=== PATIENT | male | born 1965 | race Caucasian/White ===

== ENCOUNTER → 2016-03-24 | Outpatient (CLI) | payer OTHER | END | disposition home or self-care (01) | LOC: PCVCIMAG 10:09 | PROVIDERS: ATTEND Internal Medicine | DX: Q23.1 Congenital insufficiency of aortic valve (principal); R06.02 Shortness of breath; I42.9 Cardiomyopathy, unspecified; I10 Essential (primary) hypertension; E78.5 Hyperlipidemia, unspecified; Z95.0 Presence of cardiac pacemaker | CPT/HCPCS: 80061; 93005; 93306; G0463 ==

== ENCOUNTER → 2016-04-02 | Outpatient (CLI) | payer OTHER ==
[~2016-04-02] MED LIST: BENZOCAINE ONE 20% MUCOSAL SPRAY.; FENTANYL PF 100 MCG/2 ML VIAL. ONE; IOHEXOL 350 MG/ML 100ML VIAL. ONE; IOHEXOL 350 MG/ML 50 ML VIAL. ONE; IV NORMAL SALINE 1000ML BAG 1,000 ML ONE; LIDOCAINE 1% Multi-Dose 20 ML VIAL. ONE; MIDAZOLAM HCL 2 MG/2 ML VIAL. ONE
== END | disposition home or self-care (01) ==
LOC: PCVCINTER 08:32
PROVIDERS: ATTEND Internal Medicine
DX: I35.2 Nonrheumatic aortic (valve) stenosis with insufficiency (principal); I10 Essential (primary) hypertension; I51.7 Cardiomegaly; I42.9 Cardiomyopathy, unspecified; E78.5 Hyperlipidemia, unspecified; R06.02 Shortness of breath; R06.00 Dyspnea, unspecified; Z95.0 Presence of cardiac pacemaker
CPT/HCPCS: 93312; 93325; 93458; 93567; C1751; C1760; C1769; C1894; J2250; J3010; J7030; Q9967

== ENCOUNTER → 2016-09-08 | Outpatient (CLI) | payer OTHER ==
--- NOTE | 2016-09-08 16:42 | PCVCIMAG ---
APPROVED REPORT Study performed: 09/08/2016 13:17:04 EXAM: Comprehensive 2D, Doppler, and color-flow Echocardiogram Status: routine Other Information Study Quality: Adequate Indications AVR, Hypertension, Cardiomyopathy 2D Dimensions IVSd: 13.32 (7-11mm)LVOT Diam: 23.32 (18-24mm) LVDd: 55.15 mm PWd: 11.96 (7-11mm)Ascending Ao: 36.19 (22-36mm) LVDs: 41.10 (25-40mm) Left Atrium: 31.04 (27-40mm) Aortic Root: 28.93 mm LV Single Plane 4CH: 51.48 % LV Single Plane 2CH: 59.69 %Freed's LVEF: 55.58 % Biplane EF: 56.4 % Volumes Left Atrial Volume (Systole) Single Plane 4CH: 40.95 mLSingle Plane 2CH: 46.94 mL LA ESV Index: 23.00 mL/m2 Aortic Valve AoV Peak Wilfrid.: 2.23 m/s AO Peak Gr.: 19.90 mmHgLVOT Max P.46 mmHg AO Mean Gr.: 11.79 mmHgLVOT Mean P.81 mmHg AO V2 Mean: 1.63 m/sLVOT Max V: 0.93 m/s AO V2 VTI: 42.92 cm JUNITO (VTI): 1.80 [id number] V1 VTI: 18.08 cm JUNITO Vmax: 1.78 cm2 Mitral Valve E/A Ratio: 1.0 MV Decel. Time: 266.21 ms MV E Max Wilfrid.: 0.78 m/s MV A Wilfrid.: 0.76 m/s MV PHT: 77.20 ms IVRT: 117.65 ms TDI E/Lateral E': 8.67E/Medial E': 9.75 Medial E' Wilfrid.: 0.08 m/s Lateral E' Wilfrid.: 0.09 m/s Pulmonary Valve PV Peak Gr.: 5.98 mmHg Pulmonary Vein P Vein S: 0.61 m/sP Vein A: 0.30 m/s P Vein D: 0.55 m/sP Vein A Dur.: 55.4 msec P Vein S/D Ratio: 1.11 Tricuspid Valve TR Peak Wilfrid.: 2.00 m/s TR Peak Gr.: 15.98 mmHg Left Ventricle The left ventricle is normal size. There is normal LV segmental wall motion. There is normal left ventricular wall thickness. Left ventricular systolic function is normal. The left ventricular ejection fraction is within the normal range. LVEF is 50%. The left ventricular diastolic function is normal. Right Ventricle The right ventricle is normal size. The right ventricular systolic function is normal. Atria The left atrium size is normal. The right atrium size is normal. Aortic Valve Trace aortic regurgitation is present. #27 Magna pericardial valve, normally functioning. Peak Gradient is 20mmHg. Mean gradient is 11mmHg. Mitral Valve The mitral valve is normal in structure. There is no mitral valve regurgitation noted. No evidence of mitral valve stenosis. Tricuspid Valve The tricuspid valve is normal in structure. Trace tricuspid regurgitation. Pulmonary artery pressure is 23mmhg. Pulmonic Valve The pulmonary valve is normal in structure. There is no pulmonic valvular regurgitation. Great Vessels The aortic root is normal in size. IVC is normal in size and collapses with >50% inspiration Pericardium There is no pericardial effusion. <Conclusion> Left ventricular systolic function is normal. There is normal LV segmental wall motion. LVEF 50%. #27 Magna pericardial valve, normally functioning. Peak Gradient is 20mmHg. Mean gradient is 11mmHg. Trace insufficiency The mitral valve is normal in structure. No mitral valve regurgitation noted. Pulmonary artery pressure could not be reliably ascertained There is no pericardial effusion.
== END | disposition home or self-care (01) ==
LOC: PCVCIMAG 13:10
PROVIDERS: ATTEND Internal Medicine
DX: I08.2 Rheumatic disorders of both aortic and tricuspid valves (principal); E78.5 Hyperlipidemia, unspecified; I10 Essential (primary) hypertension; Z95.0 Presence of cardiac pacemaker; Z95.4 Presence of other heart-valve replacement; Z87.891 Personal history of nicotine dependence; Z79.899 Other long term (current) drug therapy
CPT/HCPCS: 80061; 93005; 93281; 93306; G0463

== ENCOUNTER → 2017-09-23 | Outpatient (CLI) | payer OTHER ==
--- NOTE | 2017-09-23 16:40 | PCVCIMAG ---
APPROVED REPORT Study performed: 09/23/2017 14:28:14 EXAM: Comprehensive 2D, Doppler, and color-flow Echocardiogram Patient Location: Echo lab Room #: 2Status: routine BSA: 2.31 HR: 67 bpmBP: 144/80 mmHg Rhythm: NSR Other Information Study Quality: Fair Risk Factors: Cardiac Risk Factors: HTN,, Hyperlipidemia Indications Aortic Valve Disease Pacemaker Cardiomyopathy S/P AV replacement #27 Magna pericardial valve 2D Dimensions LVEF(%): 45.91 (>50%) IVSd: 9.64 (7-11mm)LVOT Diam: 26.85 (18-24mm) LVDd: 51.72 mm PWd: 9.43 (7-11mm)Ascending Ao: 34.67 (22-36mm) LVDs: 39.80 (25-40mm) Left Atrium: 25.74 (27-40mm) Aortic Root: 29.69 mm LV Single Plane 4CH: 56.27 % LV Single Plane 2CH: 72.84 %Freed's LVEF: 64.56 % Biplane EF: 66.3 % Volumes Left Atrial Volume (Systole) Single Plane 4CH: 84.12 mLSingle Plane 2CH: 67.15 mL Biplane LA Volume: 76.00 mLLA ESV Index: 33.00 mL/m2 Aortic Valve AoV Peak Wilfrid.: 2.41 m/s AO Peak Gr.: 23.81 mmHgLVOT Max P.88 mmHg AO Mean Gr.: 13.00 mmHgLVOT Mean P.61 mmHg AO V2 Mean: 1.70 m/sLVOT Max V: 0.82 m/s AO V2 VTI: 49.31 cmLVOT Mean V: 0.61 m/s JUNITO (VTI): 1.85 [id number] V1 VTI: 16.07 cm JUNITO Vmax: 1.93 cm2 SV (LVOT): 90.98 mL Mitral Valve E/A Ratio: 1.6 MV Decel. Time: 196.58 ms MV E Max Wilfrid.: 0.84 m/s MV A Wilfrid.: 0.54 m/s IVRT: 107.27 ms TDI E/Lateral E': 14.00E/Medial E': 8.40 Medial E' Wilfrid.: 0.10 m/s Lateral E' Wilfrid.: 0.06 m/s Pulmonary Valve PV Peak Wilfrid.: 1.16 m/sPV Peak Gr.: 5.41 mmHg Pulmonary Vein P Vein S: 0.59 m/sP Vein A: 0.37 m/s P Vein D: 0.50 m/sP Vein A Dur.: 72.7 msec P Vein S/D Ratio: 1.18 Tricuspid Valve TR Peak Wilfrid.: 2.24 m/s TR Peak Gr.: 20.08 mmHg TV Vmax: 0.77 m/sPA Pressure: 27.00 mmHg Left Ventricle The left ventricle is normal size. There is normal LV segmental wall motion. There is normal left ventricular wall thickness. Left ventricular systolic function is normal. The left ventricular ejection fraction is within the normal range. LVEF is 60-65%. Right Ventricle The right ventricle is normal size. The right ventricular systolic function is normal. Atria The left atrium size is normal. Pacemaker lead is present in the right atrium. Aortic Valve #27 Magna pericardial valve is seen. Prosthetic aortic valve is normal in appearance (Peak gradient 23mm, mean 13mmHg) No aortic regurgitation is present. There is no aortic valvular stenosis. Mitral Valve Mitral valve leaflets are mildly thickened and calcified. There is no mitral valve regurgitation noted. No evidence of mitral valve stenosis. Tricuspid Valve The tricuspid valve is normal in structure. Trace to mild tricuspid regurgitation with a PA pressure of 27 mmHg. Pulmonic Valve The pulmonary valve is normal in structure. There is no pulmonic valvular regurgitation. Great Vessels The aortic root is normal in size. The ascending aorta is normal in size. IVC is normal in size and collapses with >50% inspiration Pericardium There is no pericardial effusion. There is no pleural effusion. <Conclusion> Left ventricular systolic function is normal. There is normal LV segmental wall motion. LVEF 60-65%. #27 Magna pericardial aortic valve, normal in appearance (peak gradient 23mm, mean 13mmHg) No aortic regurgitation is present. Mitral valve leaflets are mildly thickened and calcified. No mitral valve regurgitation or stenosis Trace to mild tricuspid regurgitation with a pulmonary artery pressure of 27 mmHg. There is no pericardial effusion.
== END | disposition home or self-care (01) ==
LOC: PCVCIMAG 15:53
PROVIDERS: ATTEND Internal Medicine
DX: I10 Essential (primary) hypertension (principal); E78.5 Hyperlipidemia, unspecified
CPT/HCPCS: 93306